=== PATIENT | male | born 1970 | race American Indian/Alaskan Native ===

== ENCOUNTER 2021-09-11 00:44 | Emergency (ER) | payer SELFPAY ==
--- NOTE | 2021-09-11 00:57 | Emergency Department Report ---
HPI - General Time Seen by Provider: 09/11/21 00:53 - HPI HPI: Room 21 The patient is a 50-year-old male present with a chief complaint of cardiac arrest. Per EMS the heard the patient fall to the ground. Reportedly the patient had dose himself with his insulin approximately 30 minutes prior. found the patient unresponsive and EMS was called. EMS arrived on scene at 00:06 to find the patient in asystole. ACLS protocols were initiated and the patient was intubated using a Dev airway. Patient was administered 3 rounds of epi and 1 amp of sodium bicarb prior to arrival. Accu-Chek with EMS was found to be in the 300s. In the ED the Dev airway was removed and the patient was intubated by myself using a 7.5 ET tube and the glidescope. ACLS protocols were continued but there was no return of spontaneous circulation ED Past Medical Hx - Past Medical History Hx Diabetes: Yes - Surgical History Past Surgical History?: No - Family History Family history: no significant - Social History Smoking Status: Unknown if ever smoked ED Review of Systems ROS: Stated complaint: CARDIAC ARREST Other details as noted in HPI Comment: Unobtainable due to pts medical conditions Physical Exam - Physical Exam Physical Exam: GENERAL: The patient is well-developed well-nourished male lying on stretcher being bagged via Dev airway and receiving chest compressions from EMS HEENT: Normocephalic. Atraumatic. NECK: Supple. Trachea midline CHEST/LUNGS: No spontaneous respirations. Breath sounds equal bilaterally after intubation by myself HEART/CARDIOVASCULAR: No heart sounds. Asystole on monitor ABDOMEN: Abdomen is soft SKIN: There is no rash. There is no edema. There is no diaphoresis. NEURO: GCS 3 T MUSCULOSKELETAL:There is no evidence of acute injury. - Intubation Time Out Performed: No Sedative: none Laryngoscope: fiberoptic video scope Size: 3 Assist Device Used: fiberoptic device ET Tube Size: 7.5 Tube Secured Depth (cm): 24 Tube Secured Location: lips Tube Placement Confirmation: visualized tube passing t, equal breath sounds bilat, no breath sounds over epi, confirmation by capnometr Patient Tolerated Procedure: no complications Intubation Complications: none ED Medical Decision Making - Differential Diagnosis Cardiac arrest Critical care attestation.: If time is entered above; I have spent that time in minutes in the direct care of this critically ill patient, excluding procedure time. ED Disposition Clinical Impression: Cardiac arrest Disposition: 20 Is pt being admited?: No Does the pt Need Aspirin: No Condition: Poor Time of Disposition: 00:54 (Patient )
[2021-09-11] MEDS ORDERED: SODIUM BICARB 8.4% 50 MEQ/50 ML SYRINGE IV ONE (23:58)
[2021-09-11] MEDS ORDERED: EPINEPHrine 1 MG/10 ML SYRINGE ONE (23:58)
== END 2021-09-11 06:31 ==
LOC: ED 00:44
DX: I46.9 Cardiac arrest, cause unspecified (principal); E11.9 Type 2 diabetes mellitus without complications
CPT/HCPCS: 31500; 92950; 99285; J0171